=== PATIENT | female | born 1985 | race Caucasian/White ===

== ENCOUNTER 2020-11-16 06:01 | Inpatient (IN) ==
[~2020-11-16 06:01] MED LIST: Buffered Lidocaine 1% SYRIN 1 ml INTRADERM ONE; Famotidine IV 10 MG/ML 2 ml VIAL (20 mg) IV ONE; Lactated Ringers 1000 ml BAG 1,000 ML IV SCH
[2020-11-16] MEDS ORDERED: ceFAZolin 1 GM ADVAN 1 GM ADDV.VIAL IVPB ONE (06:22)
[2020-11-16] MEDS ORDERED: Heparin 5000 UNITS/ML 1 mL VIAL ONE (06:22)
[2020-11-16] MEDS ORDERED: ceFAZolin 2 GM PREMIX 2 GM/50 ML BAG ONE (06:22)
[2020-11-16] MEDS ORDERED: Famotidine IV 10 MG/ML 2 ml VIAL (20 mg) ONE (06:23)
[2020-11-16] MEDS ORDERED: Buffered Lidocaine 1% SYRIN 1 ml INTRADERM ONE (06:23)
[2020-11-16] MEDS ORDERED: Midazolam 2 mg/2 ml VIAL 1 mg/ml 2 ml VIAL (2 mg) ONE (07:04)
[2020-11-16] MEDS ORDERED: HYDROmorphone 1 MG/1 ML SYRINGE ONE (07:04)
[2020-11-16] MEDS ORDERED: Dexamethasone IV 4 MG/ML VIAL 1 ml VIAL ONE (07:05)
[2020-11-16] MEDS ORDERED: Rocuronium 50 mg VIAL 10 mg/ml 5 ml VIAL (50 mg) ONE ×2 (07:05→08:48)
[2020-11-16] MEDS ORDERED: Glycopyrrolate IV 0.2 MG/ML 1 ML VIAL ONE (07:05)
[2020-11-16] MEDS ORDERED: Lidocaine 2% PF 5 ML VIAL ONE (07:05)
[2020-11-16] MEDS ORDERED: Ondansetron 4 mg VIAL 2 MG/ML 2 ml VIAL ONE (07:05)
[2020-11-16] MEDS ORDERED: Propofol 10 MG/ML 20 ML BTL ONE (07:05)
[2020-11-16] MEDS ORDERED: HYDROcodone/ACET. 7.5/325 LIQ 15 ML UDC PO PRN (09:30)
[2020-11-16] MEDS ORDERED: HYDROmorphone 0.5 MG/0.5 ML SYRINGE IV SLOW PU PRN (09:30)
[2020-11-16] MEDS ORDERED: DiMENhydriNATE IV 50 mg/ml 1 ml VIAL IV PUSH PRN (09:36)
[2020-11-16] MEDS ORDERED: Naloxone 0.4 mg VIAL 0.4 mg/ml 1 ml VIAL IV PRN (09:36)
[2020-11-16] MEDS ORDERED: Ondansetron 4 mg VIAL 2 MG/ML 2 ml VIAL IV PRN (09:36)
[2020-11-16] MEDS ORDERED: DiMENhydriNATE IV 50 mg/ml 1 ml VIAL ONE (09:44)
[2020-11-16] MEDS ORDERED: fentaNYL 100 mcg/2 ml 50 MCG/ML VIAL ONE ×3 (09:45→11:01)
[2020-11-16] MEDS: fentaNYL 100 mcg/2 ml 50 MCG/ML VIAL IV PRN ×5 (09:47→11:02)
[2020-11-16] MEDS: Lactated Ringers 1000 ml BAG 1,000 ML IV SCH ×2 (12:23→20:03)
[2020-11-16] MEDS: Ondansetron 4 mg VIAL 2 MG/ML 2 ml VIAL IV PRN ×2 (15:45→22:11)
[2020-11-16] MEDS ORDERED: Metoclopramide 5 MG/ML VIAL (10 mg) IV SLOW PU ONE (18:03)
[2020-11-16] MEDS: Metoclopramide 5 MG/ML VIAL (10 mg) IV SLOW PU SCH (18:27)
[2020-11-16] MEDS: Famotidine IV 10 MG/ML 2 ml VIAL (20 mg) IV SLOW PU SCH (20:03)
[2020-11-16] MEDS: Heparin 5000 UNITS/ML 1 mL VIAL SUBCUT SCH (22:11)
[2020-11-17] MEDS: Metoclopramide 5 MG/ML VIAL (10 mg) IV SLOW PU SCH ×3 (00:27→12:14)
[2020-11-17] MEDS: Lactated Ringers 1000 ml BAG 1,000 ML IV SCH (03:06)
[2020-11-17] MEDS: Heparin 5000 UNITS/ML 1 mL VIAL SUBCUT SCH ×2 (07:41→13:52)
[2020-11-17] MEDS: Famotidine IV 10 MG/ML 2 ml VIAL (20 mg) IV SLOW PU SCH (08:03)
[2020-11-17] MEDS ORDERED: D5W 1/2 NS KCl 20 meq 1000 ml 1,000 ML IV SCH (10:00)
[2020-11-17 11:20] VITALS: BP 134/77
[2020-11-19] MEDS ORDERED: Scopolamine PATCH Remove NOTE PATCH OFF ONE (09:37)
== END 2020-11-17 15:38 | disposition home or self-care (01) | DRG 403 ==
LOC: AA 06:01 → SSU 11:56
PROVIDERS: ADMIT Surgery; ATTEND Surgery